=== PATIENT | male | born 1960 | race Caucasian/White ===

== ENCOUNTER 2022-03-10 05:40 | Inpatient (IN) ==
[2022-03-03 11:38] LABS: Basophils # 0.1 10*3/uL (0.0-0.2); Basophils % 1.1 % (0.0-0.8); Eosinophils # 0.3 10*3/uL (0.0-0.87); Eosinophils % 4.5 % (0.00-10.9); Hematocrit 42.4 VOL% (42.0-52.0); Hemoglobin 14.8 GM/DL (14.0-18.0); Immature Granulocytes % 0.5 %; Immature Granulocytes Absolute 0.03 #; Lymphocytes # 1.8 10*3/uL (1.4-4.0); Lymphocytes % 27.9 % (21.2-54.2); Mean Corpuscular HGB Conc 34.9 GM/DL (32-36); Mean Corpuscular Volume 93.4 FL (87-102); Mean Platelet Volume 10.5 FL (9.6-12.0); Monocytes # 0.7 10*3/uL (0.11-0.8); Platelet Count 198 T/CUMM (130-400); Red Blood Count 4.54 MC/CUMM (3.8-5.5); White Blood Count 6.6 T/CUMM (4-12)
[2022-03-03 12:06] LABS: Albumin 4.4 G/DL (3.4-5.0); Bilirubin,Total 0.6 MG/DL (0.20-1.00); Osmolality,Calculated 282.3 MOS/KG (273-304); Potassium 4.1 MMOL/L (3.5-5.1); Total Protein 7.4 G/DL (6.4-8.2)
[2022-03-10] MEDS ORDERED: ALVIMOPAN 12 MG CAPSULE PO ONE (06:00)
[2022-03-10] MEDS ORDERED: cefTRIAXone 1,000 MG in SODIUM CHLORIDE 0.9% 100 ML IV ONE (06:00)
[2022-03-10] MEDS ORDERED: DIAZEPAM 5 MG TABLET PO ONE (06:22)
[2022-03-10] MEDS ORDERED: DEXAMETHASONE 4 MG/1 ML VIAL ONE (06:24)
[2022-03-10] MEDS ORDERED: BUPIVACAINE MPF 0.5% /EPI 30 ML VIAL ONE (06:24)
[2022-03-10] MEDS ORDERED: LACTATED RINGERS 1,000 ML IV SCH (06:30)
[2022-03-10] MEDS ORDERED: MIDAZOLAM 2 MG/2 ML VIAL ONE (06:31)
[2022-03-10] MEDS ORDERED: fentaNYL 100 MCG/2 ML VIAL ONE ×3 (06:31→10:03)
[2022-03-10] MEDS ORDERED: BUPIVACAINE MPF 0.5% 30 ML VIAL ONE (06:33)
[2022-03-10] MEDS ORDERED: ROPIVACAINE 0.5% 30 ML VIAL ONE (06:33)
[2022-03-10] MEDS ORDERED: SEVOFLURANE 1 UNIT/15 MINUTE INH ONE ×2 (06:33→08:11)
[2022-03-10] MEDS ORDERED: ePHEDrine 50 MG/ML VIAL ONE (07:52)
[2022-03-10] MEDS ORDERED: propofoL 200 MG/20 ML VIAL IV ONE (08:11)
[2022-03-10] MEDS ORDERED: LACTATED RINGERS 1,000 ML IV ONE (08:11)
[2022-03-10] MEDS ORDERED: SUCCINYLCHOLINE 200 MG/10 ML VIAL ONE (08:11)
[2022-03-10] MEDS ORDERED: LIDOCAINE 2% 5 ML VIAL ONE ×2 (08:11→10:18)
[2022-03-10] MEDS ORDERED: ONDANSETRON 4 MG/2 ML VIAL ONE (08:11)
[2022-03-10] MEDS ORDERED: ROCURONIUM 50 MG/5 ML VIAL IV ONE ×2 (08:11→08:12)
[2022-03-10] MEDS ORDERED: MANNITOL 12.5 GM/50 ML VIAL IV ONE ×2 (08:41)
[2022-03-10 08:49] LABS: Bacteria,Urine Occasional /HPF (Few); Calcium Oxalate Crystals,Urine Occasional /HPF (Few); Mucus,Urine Occasional /LPF (Occasional); RBC,Urine 1 /HPF (0-4); Squamous Epithelial Cell,Urine Occasional /HPF (0-10)
[2022-03-10 08:50] LABS: Bilirubin,Urine Negative (Negative); Blood, Urine Trace mg/dL (Negative); Glucose,Urine (UA) Negative (Negative); Ketones,Urine 40 mg/dL (Negative); Nitrite,Urine Negative (Negative); Protein,Urine Negative (Negative); Urine Appearance Clear (Clear); Urine Color Yellow (Yellow); Urine Specific Gravity > 1.030 (1.001-1.035)
[2022-03-10] MEDS ORDERED: GLYCOPYRROLATE 0.4 MG/2 ML VIAL ONE (09:34)
[2022-03-10] MEDS ORDERED: NEOSTIGMINE 10 MG/10 ML VIAL ONE (09:34)
[2022-03-10] MEDS ORDERED: diphenhydrAMINE 50 MG/1 ML VIAL IV PRN (10:13)
[2022-03-10] MEDS ORDERED: ONDANSETRON 4 MG/2 ML VIAL IV PRN ×2 (10:13→11:31)
[2022-03-10] MEDS ORDERED: oxyCODONE/ACETAMINOPHEN 5-325 MG TABLET PO PRN (10:13)
[2022-03-10] MEDS ORDERED: HYDROmorphone 1 MG/1 ML SYRINGE IV PRN (10:13)
[2022-03-10] MEDS ORDERED: PROMETHAZINE 25 MG/1 ML VIAL IM PRN (10:13)
[2022-03-10 10:44] LABS: Basophils # 0.1 10*3/uL (0.0-0.2); Basophils % 0.4 % (0.0-0.8); Eosinophils % 0.3 % (0.00-10.9); Hematocrit 40.1 VOL% (42.0-52.0); Hemoglobin 13.8 GM/DL (14.0-18.0); Immature Granulocytes % 0.4 %; Immature Granulocytes Absolute 0.05 #; Lymphocytes # 1.4 10*3/uL (1.4-4.0); Lymphocytes % 10.6 % (21.2-54.2); Mean Corpuscular HGB Conc 34.4 GM/DL (32-36); Mean Corpuscular Volume 94.8 FL (87-102); Mean Platelet Volume 9.9 FL (9.6-12.0); Monocytes # 0.4 10*3/uL (0.11-0.8); Monocytes % 2.7 % (1.7-12.7); Neutrophils % 85.6 % (38.7-73.9); Platelet Count 209 T/CUMM (130-400); Red Blood Count 4.23 MC/CUMM (3.8-5.5); Red Cell Distribution Width 12.3 % (9.3-17.3); White Blood Count 13.3 T/CUMM (4-12)
[2022-03-10 11:03] LABS: Calcium 9.4 MG/DL (8.5-10.1); Osmolality,Calculated 283.3 MOS/KG (273-304); Potassium 4.1 MMOL/L (3.5-5.1)
[2022-03-10] MEDS: HYDROmorphone 1 MG/1 ML SYRINGE IV PRN ×2 (11:23→11:33)
[2022-03-10] MEDS: ACETAMINOPHEN 325 MG TABLET PO SCH ×3 (13:34→21:33)
[2022-03-10] MEDS: SODIUM CHLORIDE 0.9% 1,000 ML IV SCH (14:41)
[2022-03-10] MEDS: ALVIMOPAN 12 MG CAPSULE PO SCH (21:32)
[2022-03-10] MEDS: DOCUSATE SODIUM 100 MG CAPSULE PO SCH (21:32)
[2022-03-10] MEDS: SIMVASTATIN 10 MG TABLET PO SCH (21:33)
[2022-03-11] MEDS: SIMETHICONE CHEW 125 MG TABLET PO PRN ×2 (00:56→05:46)
[2022-03-11] MEDS: SODIUM CHLORIDE 0.9% 1,000 ML IV SCH ×3 (01:29→09:35)
[2022-03-11 05:57] LABS: Basophils % 0.2 % (0.0-0.8); Eosinophils % 0.1 % (0.00-10.9); Hematocrit 36.4 VOL% (42.0-52.0); Hemoglobin 12.6 GM/DL (14.0-18.0); Immature Granulocytes % 0.4 %; Immature Granulocytes Absolute 0.05 #; Lymphocytes # 1.3 10*3/uL (1.4-4.0); Lymphocytes % 10.4 % (21.2-54.2); Mean Corpuscular HGB Conc 34.6 GM/DL (32-36); Mean Corpuscular Volume 94.3 FL (87-102); Mean Platelet Volume 10.3 FL (9.6-12.0); Monocytes # 1.2 10*3/uL (0.11-0.8); Monocytes % 9.6 % (1.7-12.7); Neutrophils % 79.3 % (38.7-73.9); Platelet Count 187 T/CUMM (130-400); Red Blood Count 3.86 MC/CUMM (3.8-5.5); Red Cell Distribution Width 12.1 % (9.3-17.3); White Blood Count 12.9 T/CUMM (4-12)
[2022-03-11 06:13] LABS: Calcium 8.9 MG/DL (8.5-10.1); Osmolality,Calculated 277.5 MOS/KG (273-304); Potassium 3.8 MMOL/L (3.5-5.1)
[2022-03-11] MEDS: ACETAMINOPHEN 325 MG TABLET PO SCH ×4 (07:28→21:51)
[2022-03-11] MEDS: METOPROLOL TARTRATE 25 MG TABLET PO SCH (09:35)
[2022-03-11] MEDS: ALVIMOPAN 12 MG CAPSULE PO SCH ×2 (09:35→21:49)
[2022-03-11] MEDS: DOCUSATE SODIUM 100 MG CAPSULE PO SCH ×2 (09:35→21:49)
[2022-03-11] MEDS: cefTRIAXone 1,000 MG in SODIUM CHLORIDE 0.9% 100 ML IV SCH (09:35)
[2022-03-11] MEDS: PANTOPRAZOLE 40 MG TABLET PO SCH (09:36)
[2022-03-11] MEDS: amLODIPine 10 MG TABLET PO SCH (09:36)
[2022-03-11] MEDS: SIMVASTATIN 10 MG TABLET PO SCH (21:49)
[2022-03-12 05:39] LABS: Basophils % 0.2 % (0.0-0.8); Eosinophils # 0.1 10*3/uL (0.0-0.87); Eosinophils % 0.7 % (0.00-10.9); Hemoglobin 11.9 GM/DL (14.0-18.0); Immature Granulocytes % 0.3 %; Immature Granulocytes Absolute 0.03 #; Lymphocytes # 1.2 10*3/uL (1.4-4.0); Lymphocytes % 14.1 % (21.2-54.2); Mean Corpuscular Volume 95.9 FL (87-102); Mean Platelet Volume 10.5 FL (9.6-12.0); Monocytes % 11.2 % (1.7-12.7); Neutrophils % 73.5 % (38.7-73.9); Platelet Count 151 T/CUMM (130-400); Red Blood Count 3.65 MC/CUMM (3.8-5.5); White Blood Count 8.8 T/CUMM (4-12)
[2022-03-12 05:55] LABS: Calcium 8.8 MG/DL (8.5-10.1); Osmolality,Calculated 279.4 MOS/KG (273-304); Potassium 3.5 MMOL/L (3.5-5.1)
[2022-03-12] MEDS: SODIUM CHLORIDE 0.9% 1,000 ML IV SCH (07:12)
[2022-03-12] MEDS: ACETAMINOPHEN 325 MG TABLET PO SCH ×2 (07:13→10:36)
[2022-03-12] MEDS: cefTRIAXone 1,000 MG in SODIUM CHLORIDE 0.9% 100 ML IV SCH (07:16)
[2022-03-12 07:28] VITALS: BP 149/75
[2022-03-12] MEDS: DOCUSATE SODIUM 100 MG CAPSULE PO SCH (08:40)
[2022-03-12] MEDS: ALVIMOPAN 12 MG CAPSULE PO SCH (08:40)
[2022-03-12] MEDS: METOPROLOL TARTRATE 25 MG TABLET PO SCH (08:40)
[2022-03-12] MEDS: PANTOPRAZOLE 40 MG TABLET PO SCH (08:40)
[2022-03-12] MEDS: amLODIPine 10 MG TABLET PO SCH (08:40)
== END 2022-03-12 10:42 | disposition home or self-care (01) | DRG 658 ==
LOC: N.OR 05:40 → N.SDSINP 05:41 → N.3E 13:21
PROVIDERS: ADMIT Surgery; ATTEND Surgery